=== PATIENT | female | born 1965 | race African-American/Black ===

== ENCOUNTER 2019-07-20 22:12 | Emergency (ER) | payer OTHER ==
[2019-07-20 22:23] VITALS: TEMP 97.8; BMI 34.7
[2019-07-20] MEDS ORDERED: SODIUM CHLORIDE FOR INHALATION 3 ML VIAL.NEB IH ONE (22:57)
[2019-07-20 23:44] LABS: BASO % 1.1 % (0-2.0); EOS % 5.6 % (0-4.5); HEMATOCRIT 37.2 % (32.4-45.2); HEMOGLOBIN 12.6 GM/dL (10.7-15.3); LYMPH % 44.1 % (8-40); MCH 29.3 pg (25.7-33.7); MCHC 33.8 g/dl (32.0-36.0); MEAN CELL VOLUME 86.8 fl (80-96); MEAN PLT VOLUME 8.4 fl (7.5-11.1); NEUT % 42.2 % (42.8-82.8); PLATELET COUNT 276 K/MM3 (134-434); RBC 4.28 M/mm3 (3.60-5.2); RDW 13.7 % (11.6-15.6); WHITE BLOOD COUNT 8.9 K/mm3 (4.0-10.0)
[2019-07-21 00:14] LABS: ALBUMIN 3.5 g/dl (3.4-5.0); ALK PHOS 118 U/L (45-117); ANION GAP 5 MMOL/L (8-16); BILIRUBIN,TOTAL 0.1 mg/dL (0.2-1); BLOOD UREA NITROGEN 13.6 mg/dL (7-18); CHLORIDE 108 mmol/L (98-107); CO2 31 mmol/L (21-32); CREATININE 0.8 mg/dL (0.55-1.3); GLUCOSE,RANDOM 105 mg/dL (74-106); POTASSIUM 3.9 mmol/L (3.5-5.1); SGOT/AST 23 U/L (15-37); SGPT/ALT 29 U/L (13-61); SODIUM 144 mmol/L (136-145); TOT PROT 7.4 g/dl (6.4-8.2)
--- NOTE | 2019-07-21 01:11 | PDOC ---
History of Present Illness - General Chief Complaint: Respiratory Stated Complaint: S.O.B Time Seen by Provider: 07/20/19 22:36 History Source: Patient Exam Limitations: No Limitations Past History - Past Medical History Allergies/Adverse Reactions: Allergies Allergy/AdvReac Type Severity Reaction Status Date / Time No Known Allergies Allergy Verified 07/20/19 22:23 Home Medications: Ambulatory Orders Fluticasone Prop 0.05% Nasal [Flonase -] 1 - 2 spray NS BID #1 spray.pump COPD: No - Surgical History Abdominal Surgery: Yes (intestinal bllockage) Cholecystectomy: Yes - Psycho Social/Smoking Cessation Hx Smoking History: Never smoked *Physical Exam - Vital Signs Last Vital Signs Temp Pulse Resp BP Pulse Ox 97.8 F 56 L 18 145/67 99 07/20/19 22:21 07/20/19 22:21 07/20/19 22:21 07/20/19 22:21 07/20/19 22:21 - Physical Exam General Appearance: No: Apparent Distress HEENT: positive: Normal Voice, Nasal Congestion. negative: Muffled/Hoarse voice , Pharyngeal Erythema, Tonsillar Exudate, Tonsillar Erythema, Rhinorrhea, Sinus Tenderness Respiratory/Chest: positive: Lungs Clear, Normal Breath Sounds. negative: Respiratory Distress, Accessory Muscle Use, Labored Respiration, Rapid RR, Decreased Breath Sounds Cardiovascular: positive: Regular Rhythm, Regular Rate, S1, S2. negative: Murmur Gastrointestinal/Abdominal: positive: Normal Bowel Sounds, Soft. negative: Tender, Distended, Guarding, Rebound Extremity: negative: Pedal Edema, Swelling, Calf Tenderness Neurologic: positive: Alert Heart Score/ECG Review - History History: Slightly suspicious - Electrocardiogram EKG: Normal - Age Age: 45-65 - Risk Factors Risk Factors Heart Score: Yes Hx Hypertension Based on the list above the patient has:: 1-2 risk factors - Troponin Troponin: </= normal limit - Score Heart Score - Total: 2 ED Treatment Course - LABORATORY CBC & Chemistry Diagram: 07/20/19 23:35 07/20/19 23:35 - ADDITIONAL ORDERS Additional order review: Laboratory Results 07/20/19 23:35 Sodium 144 Potassium 3.9 Chloride 108 H Carbon Dioxide 31 Anion Gap 5 L BUN 13.6 Creatinine 0.8 Est GFR (CKD-EPI)AfAm 96.19 Est GFR (CKD-EPI)NonAf 83.00 Random Glucose 105 Calcium 9.0 Total Bilirubin 0.1 L AST 23 ALT 29 Alkaline Phosphatase 118 H Troponin I < 0.02 Total Protein 7.4 Albumin 3.5 07/20/19 23:35 RBC 4.28 MCV 86.8 MCHC 33.8 RDW 13.7 MPV 8.4 Neutrophils % 42.2 L Lymphocytes % 44.1 H Monocytes % 7.0 Eosinophils % 5.6 H Basophils % 1.1 - RADIOLOGY Radiology Studies Ordered: Category Date Time Status CHEST PA & LAT [RAD] Stat Radiology 07/20/19 22:57 Taken - Medications Given in the ED: ED Medications Discontinued Medications Generic Name Dose Route Start Last Admin Trade Name Freq PRN Reason Stop Dose Admin Sodium Chloride 3 ml 07/20/19 22:57 07/20/19 23:41 Normal Saline For Inhalation - IH 07/20/19 22:58 3 ml ONCE ONE Administration Medical Decision Making - Medical Decision Making 53 y/o F hx of HTN presents with wheezing from last week along with feeling SOB today along with dry cough, nasal congestion and postnasal drip. SOB is not exertional. Also has some CP with coughing; CP is not exertional. Denies fever, rhinorrhea, sneezing, abd pain, n/v, leg swelling, calf pain, recent travel. Denies smoking or drug use. EKG: NSR at 60 bpm, no ST-T changes CXR wet read negative Labs unremarkable HS is 2 Not suspicious of ACS No risk factors for PE Likely viral URI Patient felt better after getting saline neb stable for dc 07/21/19 01:06 Discharge - Discharge Information Problems reviewed: Yes Clinical Impression/Diagnosis: Viral URI Condition: Stable Disposition: HOME - Admission No - Additional Discharge Information Prescriptions: Fluticasone Prop 0.05% Nasal [Flonase -] 1 - 2 spray NS BID #1 spray.pump Prescription Drug Monitoring Program (I-STOP) results: I-STOP not reviewed - Follow up/Referral Referrals: Reema Swift [Primary Care Provider] - 2 Days - Patient Discharge Instructions Patient Printed Discharge Instructions: DI for Viral Upper Respiratory Infection -- Adult Additional Instructions: Thank you for choosing [facility]. It was a pleasure taking care of you. Use nasal spray to help with congestion You may use humidifier at night Follow-up with your doctor in 2 days Return to the Emergency Department if your symptoms worsen or persist, you have fever, shortness of breath, chest pain, severe abdominal pain, vomiting or other concerning symptoms. - Post Discharge Activity
[2019-07-21 01:34] VITALS: BP 140/78; PULSE 88
--- NOTE | 2019-07-22 10:42 | EKG ---
Test Reason : Blood Pressure : / mmHG Vent. Rate : 060 BPM Atrial Rate : 060 BPM P-R Int : 166 ms QRS Dur : 072 ms QT Int : 464 ms P-R-T Axes : 056 015 049 degrees QTc Int : 464 ms NORMAL SINUS RHYTHM WITH SINUS ARRHYTHMIA MINIMAL VOLTAGE CRITERIA FOR LVH, MAY BE NORMAL VARIANT BORDERLINE ECG NO PREVIOUS ECGS AVAILABLE Confirmed by BEE FRANCOIS MD ([id number]) on 07/22/2019 10:41:57 AM Referred By: Confirmed By:BEE FRANCOIS MD
== END 2019-07-21 01:34 | disposition home or self-care (01) ==
LOC: JER 22:12
PROC: 3E0F7GC Introduction of Other Therapeutic Substance into Respiratory Tract, Via Natural or Artificial Opening (ICD-10-PCS; principal; 2019-07-20)
DX: J06.9 Acute upper respiratory infection, unspecified (principal); B97.89 Other viral agents as the cause of diseases classified elsewhere
CPT/HCPCS: 36415; 71046-TC-FY; 80053; 84484; 85025; 93005; 93010; 99283-25

== ENCOUNTER 2020-08-22 12:12 | Emergency (ER) | payer OTHER ==
[2020-08-22 12:20] VITALS: BP 150/86; PULSE 61; TEMP 100; BMI 35.4
== END 2020-08-22 14:25 | disposition home or self-care (01) ==
LOC: JER 12:12
DX: B34.9 Viral infection, unspecified (principal)
CPT/HCPCS: 99284-25; C9803; U0003

== ENCOUNTER 2021-06-22 14:47 | Emergency (ER) | payer OTHER ==
[2021-06-22 15:00] VITALS: BP 148/78; PULSE 69; TEMP 98.2; BMI 34.5
[2021-06-22] MEDS ORDERED: predniSONE 20 MG TABLET (UD) ONE (15:26)
[2021-06-22] MEDS ORDERED: predniSONE 10 MG TABLET (UD) ONE (15:26)
[2021-06-22] MEDS ORDERED: predniSONE 20 MG TABLET (UD) PO ONE (15:30)
[2021-06-23] MEDS ORDERED: predniSONE 20 MG TABLET (UD) PO ONE (15:24)
== END 2021-06-22 17:58 | disposition home or self-care (01) ==
LOC: JERFT 14:47
DX: T78.40XA Allergy, unspecified, initial encounter (principal)
CPT/HCPCS: 99283-25

== ENCOUNTER 2024-01-07 21:13 | Emergency (ER) | payer OTHER ==
[2024-01-07 21:16] VITALS: BP 143/69; TEMP 98; BMI 35.4
[2024-01-07] MEDS ORDERED: ALBUTEROL SO4 2.5/IPRATROPIUM 0.5 INH SOL 3 ML VIAL.NEB. NEB ONE (21:19)
[2024-01-07] MEDS ORDERED: FAMOTIDINE 20 MG/50 ML IVPB 20 MG/50 ML MG IVPB ONE (21:28)
[2024-01-07] MEDS: FAMOTIDINE 20 MG/50 ML IVPB 20 MG/50 ML MG IVPB ONE ×3 (21:28→21:31)
[2024-01-07] MEDS: ALBUTEROL SO4 2.5/IPRATROPIUM 0.5 INH SOL 3 ML VIAL.NEB. NEB SCH (21:28)
[2024-01-07 22:50] VITALS: PULSE 64; RESP 20
== END 2024-01-07 22:50 | disposition home or self-care (01) ==
LOC: JER 21:13
PROC: 3E033GC Introduction of Other Therapeutic Substance into Peripheral Vein, Percutaneous Approach (ICD-10-PCS; principal; 2024-01-07)
PROC: 3E0F7GC Introduction of Other Therapeutic Substance into Respiratory Tract, Via Natural or Artificial Opening (ICD-10-PCS; 2024-01-07)
DX: J45.901 Unspecified asthma with (acute) exacerbation (principal); R09.81 Nasal congestion; K13.0 Diseases of lips; R06.02 Shortness of breath; Z20.822 Contact with and (suspected) exposure to COVID-19
CPT/HCPCS: 0241U-QW; 99284-25